=== PATIENT | male | born 1940 | race Caucasian/White ===

== ENCOUNTER 2019-11-03 10:42 | Inpatient (IN) | payer OTHER ==
[~2019-11-03] VITALS: Ht 175.3 cm; Wt 68.1 kg
[2019-11-03 15:02] VITALS: BP 143/65
[2019-11-03 15:52] LABS: HEMATOCRIT 24.8 % (42.0-52.0); HEMOGLOBIN 8.2 gm/dL (14.0-18.0); MCH 33.2 pg (26.0-34.0); MCHC 32.9 g/dL (28.0-37.0); MCV 100.9 fL (80.0-100.0); RBC 2.45 mil/uL (4.50-6.00); RDW 32.5 % (10.5-14.5); WBC 5.6 thou/uL (4.0-11.0)
[2019-11-03 16:01] LABS: CALCIUM 8.6 mg/dL (8.5-10.1); CREATININE 0.7 mg/dL (0.7-1.3)
[2019-11-03 16:04] LABS: INR 1.1
[2019-11-03 16:07] LABS: ALBUMIN 3.4 g/dL (3.4-5.0); PHOSPHORUS 2.8 mg/dL (2.5-4.9); TOTAL BILIRUBIN 1.5 mg/dL (0.2-1.0); TOTAL PROTEIN 6.4 g/dL (6.4-8.2)
[2019-11-03 16:34] LABS: TSH 1.256 uIU/mL (0.358-3.740)
[2019-11-03] MEDS ORDERED: MELOXICAM15 MG PO (18:14)
[2019-11-03] MEDS ORDERED: LORCET 5-325 M1 EACH PO (18:15)
[2019-11-03] MEDS ORDERED: FLEXERIL PO (18:15)
[2019-11-03 19:04] VITALS: BP 140/52
[2019-11-03 19:19] LABS: URINE BILIRUBIN NEGATIVE (Negative); URINE BLOOD NEGATIVE (Negative); URINE CLARITY CLEAR; URINE COLOR YELLOW; URINE GLUCOSE-RANDOM* NEGATIVE (Negative); URINE KETONES NEGATIVE (Negative); URINE LEUKOCYTES NEGATIVE (Negative); URINE NITRITE NEGATIVE (Negative); URINE PROTEIN (DIPSTICK) NEGATIVE (Negative)
[2019-11-03 22:44] LABS: ABSOLUTE RETIC COUNT 0.0229 10^6/uL; OBSERVED RETIC COUNT 0.92 % (0.6-2.6)
[2019-11-03 22:49] LABS: % SATURATION 40 % (20-39); IRON 68 ug/dL (65-175); TIBC 172 ug/dL (250-450)
[2019-11-04 05:31] LABS: HEMATOCRIT 24.1 % (42.0-52.0); HEMOGLOBIN 8.1 gm/dL (14.0-18.0); MCHC 33.5 g/dL (28.0-37.0); MCV 101.6 fL (80.0-100.0); RBC 2.37 mil/uL (4.50-6.00); RDW 32.4 % (10.5-14.5); WBC 6.1 thou/uL (4.0-11.0)
[2019-11-04 05:36] LABS: CALCIUM 8.4 mg/dL (8.5-10.1); CREATININE 0.8 mg/dL (0.7-1.3); POTASSIUM 4.2 mmol/L (3.5-5.1)
--- NOTE | 2019-11-04 08:03 | EKG ---
[facility] [place] [address] ELECTROCARDIOGRAM REPORT Name: MARLEEN GALICIA Room #: 437-P ADM IN M.R.#: [id number] Admission: 11/03/19 Attend Phys: Cuauhtemoc Espinoza MD Discharge: Date of : 38 Report #: [id number] THIS REPORT FOR: cc: FAM - Family physician unknown FAM - Family physician unknown Timbo Ellison MD [facility] THIS REPORT FOR: //name// [facility] Test Date: 2019-11-03 Test Time: 15:38:58 Pat Name: MARLEEN GALICIA Department: Room: 437 P Gender: M Clerk Secretary: Andre HART : 1940 Requested By: Josee Yan Order Number: [id number] MD: Timbo Ellison Measurements Intervals [place] Rate: 73 P: 10 KS: 206 QRS: 49 QRSD: 91 T: 26 QT: 370 QTc: 408 Interpretive Statements Sinus rhythm Frequent premature ventricular complexes Baseline wander in lead(s) II,III,aVF No previous ECG available for comparison Electronically Signed On 11-04-2019 8:02:55 CDT by Timbo Ellison [email or web address] <ELECTRONICALLY SIGNED> By: Timbo Ellison MD, LOCATED [facility]IN [facility] 11/04/19 0802 [id number] Timbo Ellison MD, [facility] /EPI
--- NOTE | 2019-11-04 08:51 | 2DMMODE ---
[facility] [address] [place] [address] 2 D/M-MODE ECHOCARDIOGRAM Name: MARLEEN GALICIA Room #: 437-P ADM IN M.R.#: [id number] Admission: 11/03/19 Attend Phys: Cuauhtemoc Espinoza MD Discharge: Date of : 38 Report #: [id number] THIS REPORT FOR: cc: FAM - Family physician unknown FAM - Family physician unknown Timbo Ellison MD [facility] ~ APPROVED REPORT Study performed: 11/04/2019 07:51:40 EXAM: Comprehensive 2D, Doppler, and color-flow Echocardiogram Patient Location: Bedside Room #: 437 Status: routine BSA: 1.83 HR: 90 bpm BP: 140/52 mmHg Rhythm: Sinus arrhythmia Other Information Study Quality: Adequate Indications History of CHF with no cardiology follow up in a long time. 2D Dimensions RVDd: 38.39 mm IVSd: 8.85 (7-11mm) LVOT Diam: 22.19 (18-24mm) LVDd: 54.81 mm PWd: 9.68 (7-11mm) Ascending Ao: 31.74 (22-36mm) LVDs: 34.41 (25-40mm) Aortic Root: 33.54 mm Volumes Left Atrial Volume (Systole) Single Plane 4CH: 74.68 mL Single Plane 2CH: 58.02 mL LA ESV Index: 38.00 mL/m2 Aortic Valve AoV Peak Chandan.: 1.32 m/s AO Peak Gr.: 7.02 mmHg LVOT Max P.25 mmHg LVOT Max V: 0.90 m/s SEBLE Vmax: 2.63 cm2 [facility] [address] [address] 2 D/M-MODE ECHOCARDIOGRAM Name: GRAYSONMARLEEN Room #: 437-P [facility].#: [id number] Admission: 11/03/19 Attend Phys: Andre Clark Discharge: Date of : 38 Report #: [id number] Mitral Valve E/A Ratio: 1.1 MV Decel. Time: 220.43 ms MV E Max Chandan.: 1.03 m/s MV A Chandan.: 0.97 m/s MV PHT: 63.92 ms IVRT: 80.74 ms Pulmonary Valve PV Peak Chandan.: 0.76 m/s PV Peak Gr.: 2.34 mmHg Pulmonary Vein P Vein S: 0.36 m/s P Vein A: 0.42 m/s P Vein D: 0.58 m/s P Vein A Dur.: 138.4 msec P Vein S/D Ratio: 0.62 Tricuspid Valve TR Peak Chandan.: 3.50 m/s RAP Estimate: 5.00 mmHg TR Peak Gr.: 48.00 mmHg PA Pressure: 53.00 mmHg Left Ventricle The left ventricle is normal size. There is normal left ventricular wall thickness. Left ventricular systolic function is mildly decreased. Possible inferior wall hypokinesis. LVEF is 45-50%. Right Ventricle The right ventricle is normal size. The right ventricular systolic function is normal. Atria Left atrium is mildly dilated. The right atrium size is normal. Aortic Valve The aortic valve is normal in structure. There is no aortic valvular stenosis. Mitral Valve The mitral valve is normal in structure. Moderate mitral regurgitation. No evidence of mitral valve stenosis. Tricuspid Valve The tricuspid valve is normal in structure. Trace to mild tricuspid regurgitation. Estimated PAP is 50mmHg. [facility] [address] [place] [address] 2 D/M-MODE ECHOCARDIOGRAM Name: GRAYSONMARLEEN Room #: 437-P ADM IN M.R.#: [id number] Admission: 11/03/19 Attend Phys: Andre Clark Discharge: Date of : 38 Report #: [id number] Pulmonic Valve The pulmonary valve is normal in structure. Mild pulmonic regurgitation. Great Vessels The aortic root is normal in size. The ascending aorta is normal in size. IVC is normal in size and collapses >50% with inspiration. Pericardium There is no pericardial effusion. <Conclusion> Left ventricular systolic function is mildly decreased. Possible inferior wall hypokinesis. LVEF is 45-50%. Left atrium is mildly dilated. The aortic valve is normal in structure. No stenosis or insufficiency The mitral valve is normal in structure. Moderate mitral regurgitation. Trace to mild tricuspid regurgitation. Estimated pulmonary artery pressure of 50mmHg. There is no pericardial effusion. <ELECTRONICALLY SIGNED> By: Timbo Ellison MD, [facility] 11/04/1952 0 0 Timbo Ellison MD, [facility] /INF
[2019-11-04 16:30] VITALS: BP 103/52
[2019-11-04 19:50] VITALS: BP 106/45
[2019-11-05 04:00] VITALS: BP 131/56
[2019-11-05 07:04] VITALS: BP 116/53
[2019-11-05 08:44] VITALS: BP 130/58
[2019-11-05 17:56] VITALS: BP 123/48
[2019-11-05 19:43] VITALS: BP 139/64
[2019-11-06 04:27] VITALS: BP 136/76
[2019-11-06 08:00] VITALS: BP 123/66
== END 2019-11-06 11:39 | DRG 517 ==
LOC: PRE 10:42 → 4S 14:40
PROVIDERS: Internal Medicine; ADMIT Hospitalist; ATTEND Hospitalist
PROC: 0QS03ZZ Reposition Lumbar Vertebra, Percutaneous Approach (ICD-10-PCS; principal; 2019-11-04)
PROC: 0QU03JZ Supplement Lumbar Vertebra with Synthetic Substitute, Percutaneous Approach (ICD-10-PCS; principal; 2019-11-04)
DX: S32.049A Unspecified fracture of fourth lumbar vertebra, initial encounter for closed fracture (principal); I50.9 Heart failure, unspecified; D64.9 Anemia, unspecified; K21.9 Gastro-esophageal reflux disease without esophagitis; Z66 Do not resuscitate; N40.1 Benign prostatic hyperplasia with lower urinary tract symptoms; R33.8 Other retention of urine; M54.5 Low back pain; G89.29 Other chronic pain; G47.00 Insomnia, unspecified; Z20.828 Contact with and (suspected) exposure to other viral communicable diseases; Z60.2 Problems related to living alone; Z87.891 Personal history of nicotine dependence; Z82.49 Family history of ischemic heart disease and other diseases of the circulatory system; W01.0XXA Fall on same level from slipping, tripping and stumbling without subsequent striking against object, initial encounter; Z81.2 Family history of tobacco abuse and dependence; Z90.49 Acquired absence of other specified parts of digestive tract; Z88.8 Allergy status to other drugs, medicaments and biological substances; Z47.89 Encounter for other orthopedic aftercare; Y93.89 Activity, other specified; Y92.89 Other specified places as the place of occurrence of the external cause; Y99.8 Other external cause status; Z79.899 Other long term (current) drug therapy
CPT/HCPCS: 10102